=== PATIENT | male | born 1985 | race Two or more races ===

== ENCOUNTER → 2019-11-01 10:43 | Outpatient (CLI) | payer MEDICAID, SELFPAY ==
[2019-11-01 11:22] LABS: Sperm Count 83 mil/mm3 (20-160)
[2019-11-01 11:38] LABS: PH,Semen 8.5 (7.3-8.3); Semen Viscosity Normal (Normal); WBCs,Semen Trace
[2019-11-01 11:39] LABS: Motility Quality Immotile Sperm (Mod-Rapid); Sperm Motility 0 % (50-90)
[2019-11-01 13:33] LABS: 3Hr Motility Quality Immotile Sperm (Mod-Rapid); 3Hr Sperm Motility 0 % (50-60)
[2019-11-01 13:34] LABS: Sperm Morphology Normal (Normal)
== END ==
PROVIDERS: Visit Provider Obstetrics & Gynecology
DX: Z30.9 Encounter for contraceptive management, unspecified (principal)
CPT/HCPCS: 89320